=== PATIENT | male | born 1935 | race Caucasian/White ===

== ENCOUNTER 2016-08-05 15:16 | Emergency (ER) | payer MEDICARE, BC ==
[~2016-08-05] VITALS: Wt 65.8 kg
[~2016-08-05 15:16] MED LIST: ANTI-DIARRHEAL2 MG PO; ARICEPT10 M1 PO; ASA; ASPIR 8181 MG PO; ASPIRIN CHEWABL81 M1 PO; ASPIRIN CHEWABL81 MG PO; ASPIRIN81 M1 PO; CALCIUM; CALCIUM 600600 M2 PO; CALCIUM600 M1 PO; CALCIUM600 MG PO; CIPRO500 MG PO; DESENEX43 GM TP; DONEPEZIL HYDRO10 MG PO; FERREX 150150 MG PO; FINASTERIDE5 M1 PO; FINASTERIDE5 MG; FINASTERIDE5 MG PO; FUROSEMIDE20 M1 PO; GEMFIBROZIL600 MG; GEMFIBROZIL600 MG PO; HALOPERIDOL1 MG PO; KEPPRA1000 MG PO; LISINOPRIL; LISINOPRIL20 MG PO; LISINOPRIL5 MG PO; LOMOTIL 0.025 M1 TA1 PO; LOPID600 MG PO; MACROBID100 M1 PO; MEDROL DOSEPAK4 MG PO; MULTIPLE VITAMI1 CAP PO; MULTIVITAMIN; NAMENDA-5 PO; NAMENDA10 MG PO; NORVASC10 MG PO; NORVASC5 MG PO; OMEPRAZOLE D/R20 MG PO; OMEPRAZOLE20 MG PO; ONE DAILY WITH1 EACH PO; RISPERDAL1 M1 PO; RISPERDAL2 M1 PO; RISPERIDONE1 MG PO; THERAPEUTIC VIT1 CAP PO; TRAZODONE50 MG PO; TYLENOL500 MG; ULTRAM50 MG PO; ZOFRAN ODT4 MG SL; ZOFRAN4 MG PO
[2016-08-05 16:21] LABS: BASO % 0.3 % (0.0-1.0); EOS # 0.1 10*3/uL (0.0-0.4); EOS % 2.8 % (1.0-4.0); HEMATOCRIT 39.1 % (42.0-52.0); HEMOGLOBIN 13.4 g/dl (14.0-18.0); LYMPH # 0.9 10*3/uL (1.3-4.4); LYMPH % 25.6 % (27.0-41.0); MEAN CELL VOLUME 93.5 fl (80.0-94.0); MEAN CORPUSCULAR HGB 32.1 pg (27.0-31.0); MEAN CORPUSCULAR HGB CONC 34.3 g/dl (33.0-37.0); MEAN PLATELET VOLUME 9.2 fl (9.6-12.3); MONO # 0.2 10*3/uL (0.1-1.0); MONO % 6.1 % (3.0-9.0); NEUT # 2.3 10*3/uL (2.3-7.9); NEUT % 64.9 % (47.0-73.0); PLATELET COUNT AUTOMATED 156 10*3/uL (130-400); RED BLOOD COUNT 4.18 10*6/uL (4.50-5.90); RED CELL DISTRI WIDTH 13.3 % (0-14.5); WHITE BLOOD COUNT 3.6 10*3/uL (4.8-10.8)
[2016-08-05 16:35] LABS: ALBUMIN 3.8 gm/dl (3.1-4.5); ALKALINE PHOSPHATASE 90 U/L (45-117); BILIRUBIN, TOTAL 0.4 mg/dl (0.2-1.0); BUN 18 mg/dl (7-24); CARBON DIOXIDE 30 mmol/L (21-32); CHLORIDE 103 mmol/L (98-107); EST GLOM FILT AFRICAN AMERICAN > 60 ml/min; GLUCOSE 88 mg/dL (65-99); POTASSIUM 3.8 mmol/L (3.5-5.1); SGOT/AST 27 IU/L (3-35); SGPT/ALT 23 U/L (12-78); SODIUM 141 mmol/L (136-145); TOTAL PROTEIN 7.6 gm/dL (6.4-8.2)
[2016-08-05] MEDS ORDERED: CALCIUM600 M2 PO (17:01)
[2016-08-05] MEDS ORDERED: NORVASC5 MG PO (17:02)
[2016-08-05] MEDS ORDERED: ARICEPT10 M1 PO (17:04)
[2016-08-05 18:55] LABS: BILIRUBIN NEGATIVE (NEGATIVE); BLOOD TRACE-INTACT (NEGATIVE); CLARITY CLEAR (CLEAR); COLOR YELLOW (YELLOW); GLUCOSE NEGATIVE (NEGATIVE); KETONE NEGATIVE (NEGATIVE); LEUKO ESTERASE NEGATIVE (NEGATIVE); NITRITE NEGATIVE (NEGATIVE); PH 6.5 (5.0-9.0); PROTEIN NEGATIVE (NEGATIVE); SPECIFIC GRAVITY <= 1.005 (1.005-1.030); UROBILINOGEN 0.2 E.U./dl (0.2-1.0)
[2016-08-05] MEDS ORDERED: MIRALAX POWDER17 G1 PO (19:00)
[2016-08-05 19:04] LABS: BACTERIA 2+; EPITHELIAL CELLS 0-2; MUCOUS TRACE; RBC 0-2 rbc/hpf (0-2); URINE REFLEX COMMENT YES (NO)
== END 2016-08-05 19:20 | disposition home or self-care (01) ==
LOC: ED 15:16
PROVIDERS: Registered Nurse
DX: G30.8 Other Alzheimer's disease (principal); F02.81 Dementia in other diseases classified elsewhere, unspecified severity, with behavioral disturbance; K59.00 Constipation, unspecified; Z90.49 Acquired absence of other specified parts of digestive tract; Z91.011 Allergy to milk products; Z79.82 Long term (current) use of aspirin; Z79.899 Other long term (current) drug therapy

== ENCOUNTER 2017-02-08 15:44 | Emergency (ER) | payer MEDICARE, BC ==
[~2017-02-08] VITALS: Wt 68.0 kg
[~2017-02-08 15:44] MED LIST changes: +CALCIUM600 M2 PO; +MIRALAX POWDER17 G1 PO
[2017-02-08 16:26] LABS: BASO % 0.5 % (0.0-1.0); EOS # 0.1 10*3/uL (0.0-0.4); EOS % 2.5 % (1.0-4.0); HEMATOCRIT 36.4 % (42.0-52.0); HEMOGLOBIN 12.2 g/dl (14.0-18.0); LYMPH # 0.8 10*3/uL (1.3-4.4); MEAN CELL VOLUME 95.5 fl (80.0-94.0); MEAN CORPUSCULAR HGB CONC 33.5 g/dl (33.0-37.0); MEAN PLATELET VOLUME 9.8 fl (9.6-12.3); MONO # 0.4 10*3/uL (0.1-1.0); MONO % 8.6 % (3.0-9.0); NEUT # 2.8 10*3/uL (2.3-7.9); NEUT % 68.9 % (47.0-73.0); PLATELET COUNT AUTOMATED 211 10*3/uL (130-400); RED BLOOD COUNT 3.81 10*6/uL (4.50-5.90); RED CELL DISTRI WIDTH 14.2 % (0-14.5); WHITE BLOOD COUNT 4.1 10*3/uL (4.8-10.8)
[2017-02-08 16:40] LABS: BUN 25 mg/dl (7-24); CHLORIDE 103 mmol/L (98-107); POTASSIUM 3.8 mmol/L (3.5-5.1); SODIUM 140 mmol/L (136-145)
== END 2017-02-08 18:06 | disposition home or self-care (01) ==
LOC: ED 15:44
PROVIDERS: Emergency Medicine
DX: K59.00 Constipation, unspecified (principal); F03.90 Unspecified dementia, unspecified severity, without behavioral disturbance, psychotic disturbance, mood disturbance, and anxiety; K21.9 Gastro-esophageal reflux disease without esophagitis; I10 Essential (primary) hypertension; Z79.899 Other long term (current) drug therapy

== ENCOUNTER 2017-04-09 11:10 | Inpatient (IN) | payer MEDICARE, BC ==
[~2017-04-09] VITALS: Ht 162.5 cm; Wt 64.6 kg
--- NOTE | ~2017-04-09 | DS ---
[place], [place] DISCHARGE SUMMARY NAME: LILA BRAVO [facility] #: [id number] UNIT #: [id number] ROOM: 411 DOCTOR: NICK YUSUFDAVID J BIRTHDATE: [birth year] DOS: 04/12/2017 DISCHARGE DIAGNOSES: 1. Pneumonia. Pneumonic infiltrates, resolved with treatment. 2. 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 3. Benign essential hypertension. 4. Mixed hyperlipidemia. 5. History of diverticulosis. 6. Chronic kidney disease stage 3. 7. Gastroesophageal reflux disease. 8. Benign prostatic hypertrophy and urine retention. 9. Chronic constipation. HOSPITAL COURSE: The patient presented with brought over from home by his who takes care of him with increased weakness for one week. The patient was found to have pneumonic infiltrates on the chest x-ray and he was started on antibiotics and repeat x-ray shows clearing of the infiltrates. The patient has normal advanced adult failure to thrive with dementia and poor functional status with activities of daily living. The patient's takes very good care of him at home and the patient's feels that he has achieved maximal benefit from this admission and he is back to his baseline, more awake and eating. BPH and urine retention, presently treated with finasteride and asymptomatic. Late onset Alzheimer's type dementia and behavioral issues treated with donepezil, risperidone and memantine and well controlled. Chronic constipation, treated and controlled with MiraLax. During his stay at the hospital, he was treated with ceftriaxone and azithromycin and he will be going home on Augmentin for 1 week. The patient is eating better and back to his baseline. LABORATORY DATA: Normal serum electrolytes. Potassium level had dropped to 3.4, which normalized with extra potassium supplements. Chest x-ray prior to discharge from the hospital without any abnormality. Hemoglobin stable at 9.9. No leukocytosis. DISCHARGE MANAGEMENT: Augmentin 875 mg twice a day for a week, aspirin 81 mg a day, DuoNeb every 4 hours as needed, memantine 10 mg b.i.d., risperidone 0.5 mg at bedtime, omeprazole 20 mg daily, amlodipine 10 mg daily, donepezil 10 mg daily, finasteride 5 mg daily, MiraLax 17 grams daily. [place], [place] DISCHARGE SUMMARY NAME: LILA BRAVO UNIT #: [id number] ROOM: 411 DOCTOR: NICK YUSUF,DAVID Farr BIRTHDATE: [birth year] DAVID ROMERO MD CM:JUAN DIEGO [id number] DAVID ROMERO MD 04/12/172221 interface
--- NOTE | ~2017-04-09 | WRIGHTHP ---
[place], [place] PATIENT HISTORY AND PHYSICAL EXAM NAME: LILA BRAVO [facility] #: [id number] UNIT #: [id number] ROOM: 411 DOCTOR: DAVID ROMERO MD BIRTHDATE: [birth year] DOS: 04/09/2017 HISTORY OF PRESENT ILLNESS: The patient is an 82-year-old gentleman with past medical history of: 1. End-stage Alzheimer's type dementia. 2. Benign essential hypertension. 3. Mixed hyperlipidemia. 4. History of diverticulosis. 5. History of chronic kidney disease stage 3. 6. GERD. 7. BPH and urine retention. The patient presented to the Emergency Department, brought over by his who takes care of him at home with increasing weakness for 1 week. In the ER, the patient was found to have pneumonia on the chest x-ray with patchy airspace opacities bilaterally. The patient was admitted, started on antibiotics and hydration and says he is looking much better. The patient generally is in very poor health and stays at home with the help of his . He is unable to communicate. REVIEW OF SYSTEMS: CONSTITUTIONAL: Just recent complains of increased weakness and lethargy. LUNGS: Some shortness of breath. GASTROINTESTINAL: No nausea, vomiting, diarrhea or constipation, with decreased appetite. CARDIOVASCULAR: No chest pains or palpitations. Allergies: No drug allergies, cannot tolerate MILK or MILK PRODUCTS. FAMILY HISTORY: Noncontributory. HOME MEDICATIONS: Memantine, DuoNeb, risperidone, omeprazole, amlodipine, donepezil, finasteride, MiraLax. PHYSICAL EXAMINATION: GENERAL: Awake, unable to communicate, in no visible distress, advanced generalized weakness. LABORATORY DATA: Normal serum electrolytes. White cell count 3900, hemoglobin 9.7. Chest x-ray showing subtle patchy airspace opacities. IMPRESSION AND PLAN: 1. Early bilateral pneumonia with patchy opacities on chest x-ray, being treated with antibiotics. 2. Advance adult failure to thrive and some dehydration, treated with hydration with IV fluids. BUN and creatinine are improving. 3. Chronic benign prostatic hypertrophy and urine retention, treated and controlled. 4. Benign essential hypertension. The patient's amlodipine is continued. 5. Advanced late onset Alzheimer's type dementia, treated with Namenda. [place], [place] PATIENT HISTORY AND PHYSICAL EXAM NAME: LILA BRAVO UNIT #: [id number] ROOM: 411 DOCTOR: NICK YUSUF,DAVID Farr BIRTHDATE: [birth year] 6. Behavioral issues, controlled with risperidone. 7. Chronic constipation, treated and controlled with MiraLax. DAVID ROMERO MD CM:HISPHYS:PATIENT HISTORY AND PHYSICAL EXAMINATION [id number] DAVID ROMERO MD 04/10/17 1845 interface
--- NOTE | ~2017-04-09 | PR ---
[place], [place] PROGRESS NOTE [id number] UN[facility] #: [id number] ROOM: 411 DOCTOR: DAVID ROMERO MD BIRTHDATE: [birth year] DOS: 04/11/2017 SUBJECTIVE: The patient is very weak, but improving. He is breathing normally now. OBJECTIVE: VITAL SIGNS: Blood pressure 109/61, heart rate 66 beats per minute, breathing 18 times per minute, temperature 98 degrees Fahrenheit. GENERAL APPEARANCE: The patient is alert and oriented x 3, in no visible distress, except for advanced disability and generalized weakness. HEENT AND NECK: Exam within normal limits. CARDIOVASCULAR SYSTEM: Heart rate is regular in rate and rhythm. S1 and S2 normally audible. LUNGS: Clear to auscultation. ABDOMEN: Soft, nontender. No obvious organomegaly. Bowel sounds are present. EXTREMITIES: Without significant cyanosis or edema. IMAGING: The patient with early bilateral pneumonia with patchy infiltrates on chest x-ray, clinically improving. I will repeat his chest x-ray in the morning. The patient's is present with him and she thinks he is breathing much better than what he was doing at home. IMPRESSION AND PLAN: 1. Anemia of chronic disease. Hemoglobin is stable at 9.8. 2. Hypokalemia. Potassium level low at 3.4. I will give him extra potassium supplements. 3. Chronic kidney disease stage 3, stable. 4. Benign prostatic hypertrophy and urine retention, treated and controlled. 5. Benign essential hypertension with controlled blood pressures. 6. Advanced late onset Alzheimer's type dementia, treated with Namenda. 7. Behavioral issues controlled with risperidone. 8. Chronic constipation, treated and controlled with MiraLax. DAVID ROMERO MD CM:PNTRANS [id number] DAVID ROMERO MD 04/12/17 0336 interface
[2017-04-09 11:33] VITALS: BP 135/61
[2017-04-09 11:53] LABS: BASO % 0.1 % (0.0-1.0); EOS # 0.1 10*3/uL (0.0-0.4); EOS % 0.6 % (1.0-4.0); HEMOGLOBIN 10.9 g/dl (14.0-18.0); LYMPH # 0.6 10*3/uL (1.3-4.4); LYMPH % 7.9 % (27.0-41.0); MEAN CELL VOLUME 94.8 fl (80.0-94.0); MEAN CORPUSCULAR HGB 31.3 pg (27.0-31.0); MEAN PLATELET VOLUME 10.8 fl (9.6-12.3); MONO # 0.3 10*3/uL (0.1-1.0); MONO % 3.9 % (3.0-9.0); NEUT # 6.7 10*3/uL (2.3-7.9); NEUT % 87.2 % (47.0-73.0); PLATELET COUNT AUTOMATED 110 10*3/uL (130-400); RED BLOOD COUNT 3.48 10*6/uL (4.50-5.90); RED CELL DISTRI WIDTH 14.8 % (0-14.5); WHITE BLOOD COUNT 7.7 10*3/uL (4.8-10.8)
[2017-04-09 12:08] LABS: ALBUMIN 3.2 gm/dl (3.1-4.5); ALKALINE PHOSPHATASE 119 U/L (45-117); BUN 31 mg/dl (7-24); CHLORIDE 108 mmol/L (98-107); CREATININE 1.22 mg/dL (0.70-1.30); SGOT/AST 28 IU/L (3-35); SGPT/ALT 46 U/L (12-78); SODIUM 143 mmol/L (136-145); TOTAL PROTEIN 7.5 gm/dL (6.4-8.2)
[2017-04-09 12:11] LABS: TROPONIN I < 0.015 ng/ml (<0.045)
[2017-04-09 13:44] VITALS: BP 132/69
[2017-04-09 14:21] VITALS: BP 132/72
[2017-04-09] MEDS ORDERED: NORVASC10 MG PO (14:42)
[2017-04-09 16:46] VITALS: BP 130/70
[2017-04-09 20:00] VITALS: BP 111/69
[2017-04-10] VITALS: BP 100/52
[2017-04-10 06:02] LABS: HEMOGLOBIN 9.7 g/dl (14.0-18.0); LYMPH # 0.7 10*3/uL (1.3-4.4); MEAN CELL VOLUME 94.5 fl (80.0-94.0); MEAN CORPUSCULAR HGB 31.6 pg (27.0-31.0); MEAN CORPUSCULAR HGB CONC 33.4 g/dl (33.0-37.0); MEAN PLATELET VOLUME 10.9 fl (9.6-12.3); MONO # 0.2 10*3/uL (0.1-1.0); MONO % 5.8 % (3.0-9.0); NEUT % 74.9 % (47.0-73.0); PLATELET COUNT AUTOMATED 104 10*3/uL (130-400); RED BLOOD COUNT 3.07 10*6/uL (4.50-5.90); RED CELL DISTRI WIDTH 14.7 % (0-14.5); WHITE BLOOD COUNT 3.9 10*3/uL (4.8-10.8)
[2017-04-10 06:22] LABS: CHLORIDE 107 mmol/L (98-107); CREATININE 1.14 mg/dL (0.70-1.30); SODIUM 143 mmol/L (136-145)
[2017-04-10 06:46] LABS: BUN 19 mg/dl (7-24)
[2017-04-10 08:00] VITALS: BP 108/40
[2017-04-10 12:00] VITALS: BP 109/48
[2017-04-10 16:00] VITALS: BP 128/38
[2017-04-10 20:00] VITALS: BP 110/39
[2017-04-11 06:21] LABS: BASO % 0.3 % (0.0-1.0); EOS # 0.1 10*3/uL (0.0-0.4); EOS % 1.4 % (1.0-4.0); HEMATOCRIT 29.3 % (42.0-52.0); HEMOGLOBIN 9.8 g/dl (14.0-18.0); LYMPH # 0.8 10*3/uL (1.3-4.4); LYMPH % 22.4 % (27.0-41.0); MEAN CELL VOLUME 95.4 fl (80.0-94.0); MEAN CORPUSCULAR HGB 31.9 pg (27.0-31.0); MEAN CORPUSCULAR HGB CONC 33.4 g/dl (33.0-37.0); MEAN PLATELET VOLUME 10.7 fl (9.6-12.3); MONO # 0.3 10*3/uL (0.1-1.0); MONO % 7.8 % (3.0-9.0); NEUT # 2.5 10*3/uL (2.3-7.9); NEUT % 67.3 % (47.0-73.0); PLATELET COUNT AUTOMATED 100 10*3/uL (130-400); RED BLOOD COUNT 3.07 10*6/uL (4.50-5.90); RED CELL DISTRI WIDTH 14.6 % (0-14.5); WHITE BLOOD COUNT 3.7 10*3/uL (4.8-10.8)
[2017-04-11 06:44] LABS: BUN 16 mg/dl (7-24); CHLORIDE 107 mmol/L (98-107); POTASSIUM 3.4 mmol/L (3.5-5.1); SODIUM 144 mmol/L (136-145)
[2017-04-11 06:46] LABS: CREATININE 1.16 mg/dL (0.70-1.30)
[2017-04-11 08:00] VITALS: BP 113/65
[2017-04-11 12:00] VITALS: BP 130/78
[2017-04-11 16:00] VITALS: BP 109/61
[2017-04-11 20:00] VITALS: BP 134/66
[2017-04-12] VITALS: BP 134/89
[2017-04-12 06:07] LABS: BASO % 0.2 % (0.0-1.0); EOS # 0.1 10*3/uL (0.0-0.4); EOS % 1.6 % (1.0-4.0); HEMATOCRIT 30.4 % (42.0-52.0); HEMOGLOBIN 9.9 g/dl (14.0-18.0); LYMPH # 0.9 10*3/uL (1.3-4.4); LYMPH % 15.6 % (27.0-41.0); MEAN CELL VOLUME 95.3 fl (80.0-94.0); MEAN CORPUSCULAR HGB CONC 32.6 g/dl (33.0-37.0); MEAN PLATELET VOLUME 10.7 fl (9.6-12.3); MONO # 0.4 10*3/uL (0.1-1.0); MONO % 7.3 % (3.0-9.0); NEUT # 4.2 10*3/uL (2.3-7.9); NEUT % 74.8 % (47.0-73.0); PLATELET COUNT AUTOMATED 118 10*3/uL (130-400); RED BLOOD COUNT 3.19 10*6/uL (4.50-5.90); RED CELL DISTRI WIDTH 14.8 % (0-14.5); WHITE BLOOD COUNT 5.6 10*3/uL (4.8-10.8)
[2017-04-12 06:25] LABS: BUN 14 mg/dl (7-24); CHLORIDE 110 mmol/L (98-107); CREATININE 1.04 mg/dL (0.70-1.30); POTASSIUM 3.9 mmol/L (3.5-5.1); SODIUM 142 mmol/L (136-145)
[2017-04-12 08:00] VITALS: BP 150/54
[2017-04-12 12:00] VITALS: BP 129/70
[2017-04-12 16:00] VITALS: BP 120/52
[2017-04-12] MEDS ORDERED: AUGMENTIN 875-875 MG PO (18:07)
== END 2017-04-12 20:09 | disposition home or self-care (01) | DRG 56 ==
LOC: ED 11:10 → 4E 13:24 → EDHOLD 13:24 → 4E 13:33
PROVIDERS: Nurse Practitioner Family; ADMIT Internal Medicine
DX: G30.1 Alzheimer's disease with late onset (principal); J15.9 Unspecified bacterial pneumonia; F02.81 Dementia in other diseases classified elsewhere, unspecified severity, with behavioral disturbance; E87.8 Other disorders of electrolyte and fluid balance, not elsewhere classified; D63.8 Anemia in other chronic diseases classified elsewhere; N18.3 Chronic kidney disease, stage 3 (moderate); Z66 Do not resuscitate; E86.0 Dehydration; R62.7 Adult failure to thrive; E78.2 Mixed hyperlipidemia; K57.90 Diverticulosis of intestine, part unspecified, without perforation or abscess without bleeding; R00.0 Tachycardia, unspecified; E87.6 Hypokalemia; I12.9 Hypertensive chronic kidney disease with stage 1 through stage 4 chronic kidney disease, or unspecified chronic kidney disease; K21.9 Gastro-esophageal reflux disease without esophagitis; N40.0 Benign prostatic hyperplasia without lower urinary tract symptoms; R33.9 Retention of urine, unspecified; K59.09 Other constipation; Z91.011 Allergy to milk products; Z79.82 Long term (current) use of aspirin; Z79.899 Other long term (current) drug therapy; Z90.49 Acquired absence of other specified parts of digestive tract; Z91.81 History of falling

== ENCOUNTER 2017-05-29 20:51 | Emergency (ER) | payer MEDICARE, BC ==
[~2017-05-29] VITALS: Ht 172.7 cm; Wt 68.0 kg
--- NOTE | ~2017-05-29 | EKG ---
[place], [place] ELECTROCARDIOGRAM REPORT NAME: LILA BRAVO UNIT #: [id number] ROOM: DOCTOR: YONATAN MCNALLY MD BIRTHDATE: [birth year] DOS: 05/29/2017 ELECTROCARDIOGRAM REPORT TIME: 2103 hours. RESULTS: 1. Normal sinus rhythm at 75 beats per minute. 2. Low voltage T waves in lateral leads. 3. No previous tracing is available for comparison. YONATAN MCNALLY MD CM:EKGRPT:ELECTROCARDIOGRAM REPORT [id number] YONATAN MCNALLY MD
[~2017-05-29 20:51] MED LIST changes: +AUGMENTIN 875-875 MG PO
[2017-05-29 21:28] LABS: HEMATOCRIT 36.9 % (42.0-52.0); HEMOGLOBIN 12.3 g/dl (14.0-18.0); MEAN CELL VOLUME 94.1 fl (80.0-94.0); MEAN CORPUSCULAR HGB 31.4 pg (27.0-31.0); MEAN CORPUSCULAR HGB CONC 33.3 g/dl (33.0-37.0); MEAN PLATELET VOLUME 8.8 fl (9.6-12.3); NUCLEATED RED BLOOD CELL 0.3 % (0.0-0.0); PLATELET COUNT AUTOMATED 301 10*3/uL (130-400); RED BLOOD COUNT 3.92 10*6/uL (4.50-5.90); RED CELL DISTRI WIDTH 14.2 % (0-14.5); WHITE BLOOD COUNT 7.8 10*3/uL (4.8-10.8)
[2017-05-29 21:38] LABS: ACT PARTIAL THROMBO TIME 25.1 SECONDS (20.8-31.5)
[2017-05-29 21:41] LABS: ATYPICAL LYMPHS 1 % (0-0); PLATELET SUFFICIENCY NORMAL (NORMAL); TOTAL CELLS COUNTED 100 #CELLS
[2017-05-29 21:44] LABS: ALBUMIN 3.1 gm/dl (3.1-4.5); ALKALINE PHOSPHATASE 120 U/L (45-117); BUN 16 mg/dl (7-24); CHLORIDE 103 mmol/L (98-107); CREATININE 1.18 mg/dL (0.70-1.30); LIPASE 497 U/L (73-393); POTASSIUM 4.1 mmol/L (3.5-5.1); SGOT/AST 50 IU/L (3-35); SGPT/ALT 53 U/L (12-78); SODIUM 140 mmol/L (136-145); TOTAL PROTEIN 7.2 gm/dL (6.4-8.2)
[2017-05-29 21:48] LABS: TROPONIN I 0.059 ng/ml (<0.045)
[2017-05-29] MEDS ORDERED: CALCIUM500 M1 PO (22:05)
[2017-05-29] MEDS ORDERED: MULTIVITAMINS1 EAC5 PO (22:06)
[2017-05-29] MEDS ORDERED: ACETAMINOPHEN325 M2 PO (22:06)
== END 2017-05-29 23:30 | disposition short-term general hospital (02) ==
LOC: ED 20:51
PROVIDERS: Emergency Medicine Emergency Medical Services
DX: I63.9 Cerebral infarction, unspecified (principal); F03.90 Unspecified dementia, unspecified severity, without behavioral disturbance, psychotic disturbance, mood disturbance, and anxiety; R79.89 Other specified abnormal findings of blood chemistry; R56.9 Unspecified convulsions; I10 Essential (primary) hypertension; K21.9 Gastro-esophageal reflux disease without esophagitis; E78.5 Hyperlipidemia, unspecified; Z79.899 Other long term (current) drug therapy; Z98.890 Other specified postprocedural states; Z90.49 Acquired absence of other specified parts of digestive tract; E78.00 Pure hypercholesterolemia, unspecified; Z79.82 Long term (current) use of aspirin; Z91.011 Allergy to milk products